=== PATIENT | female | born 1975 | race Caucasian/White ===

== ENCOUNTER 2018-02-23 22:25 | Emergency (ER) | payer SELFPAY, MEDICAID ==
[2018-02-24] MEDS: ACETAMINOPHEN 325 MG TAB PO (02:15)
== END 2018-02-24 02:38 | disposition home or self-care (01) ==
LOC: FTE 22:25
DX: M54.2 Cervicalgia (principal); M54.9 Dorsalgia, unspecified
CPT/HCPCS: 99282